=== PATIENT | female | born 1960 | race Two or more races ===

== ENCOUNTER 2018-11-11 16:28 | Emergency (ER) | payer OTHER, SELFPAY ==
[~2018-11-11] VITALS: Ht 157.5 cm; Wt 50.0 kg
[2018-11-11 16:38] VITALS: BP 144/79
--- NOTE | 2018-11-11 16:45 | NUR ---
PATIENT MICHAEL ROSSI FROM [facility] AT PATIENT'S WORK, PATIENT FOUND BY CO-WORKERS CRYING ON FLOOR. HX OF ANXIETY PER CO-WORKERS. HX OF METH USE. [id number]. PATIENT REFUSING TO SPEAK TO EMS, MD, SUPERVISOR IN CIRCUIT TESTING. UNABLE TO OBTAIN INFORMATION REGARDING PATIENT. PATIENT TEARFUL IN GURNEY, AWAKE/ALERT, ANXIOUS/UNCOOPERATIVE. AWAITING FURTHER ORDERS, CALL LIGHT WITHIN REACH. WARM BLANKET PROVIDED, NADN.
--- NOTE | 2018-11-11 17:02 | NUR ---
PATIENT AMBULATING WITH STEADY GAIT AROUND ER AND HEADING OUT DOOR TOWARDS RADIOLOGY, NOTIFIED STAFF TO CALL SECURITY, ATTEMPTED TO REDIRECT PATIENT BACK TO ROOM WITH NO SUCCESS. ATTEMPTED TO EDUCATE PATIENT REGARDING NEED FOR TREATMENT/OBSERVATION AFTER METH USE TODAY. PATIENT VOMITING IN BATHROOM IN HALLWAY NEAR RADIOLOGY. PATIENT UNABLE TO BE REDIRECTED BACK TO ROOM IN ED.
--- NOTE | 2018-11-11 17:16 | NUR ---
PATIENT ELOPED OUT [address] ENTRANCE WITH STEADY GAIT, SECURITY NOTIFIED. PATIENT NOT SPEAKING TO STAFF. UNABLE TO OBTAIN DC VS.
== END 2018-11-11 17:18 | disposition left against medical advice (07) ==
LOC: ED 17:12
DX: F41.9 Anxiety disorder, unspecified (principal); R45.83 Excessive crying of child, adolescent or adult
CPT/HCPCS: 99283

== ENCOUNTER 2020-03-05 20:10 | Emergency (ER) | payer OTHER ==
[~2020-03-05] VITALS: Ht 149.9 cm; Wt 52.0 kg
[2020-03-05] MEDS ORDERED: CITA10TA4 PO (20:28)
[2020-03-05] MEDS ORDERED: RISP1DIS PO (20:30)
[2020-03-05] MEDS ORDERED: CITA20SO2 PO (20:31)
--- NOTE | 2020-03-05 20:43 | NUR ---
pt states she took pills, was trying to kill herself so that's why she took her pills, she was hearing voices. To room 4, belongings placed in bags and in locked box, pt to restroom and back in bed, siderails up.
[2020-03-05 21:17] LABS: BASOPHILS % (AUTO) 0 % (0-1); EOSINOPHILS % (AUTO) 0 % (1-7); LYMPHOCYTES % (AUTO) 14 % (22-44); MEAN CORPUSCULAR HGB CONC 34.3 g/dL (32.4-35.8); MEAN PLATELET VOLUME 7.5 fL (7.4-10.4); MONOCYTES % (AUTO) 6 % (2-9); NEUTROPHILS % (AUTO) 79 % (42-75); PLATELET COUNT 250 x10^3/uL (130-400); RED BLOOD COUNT 3.61 x10^6/uL (3.82-5.3); RED CELL DISTRIBUTION WIDTH 12.5 % (9.6-15.2)
[2020-03-05 21:21] LABS: MD NO
[2020-03-05 21:28] LABS: ALANINE AMINOTRANSFERASE 19 U/L (12-78); ALBUMIN 3.6 g/dL (3.4-5.0); ANION GAP 7 mmol/L (5-15); CHLORIDE 111 mmol/L (98-107); CREATININE 0.64 mg/dL (0.55-1.02)
[2020-03-05 21:31] LABS: ALKALINE PHOSPHATASE 81 U/L (45-117); BILIRUBIN,TOTAL 0.6 mg/dL (0.2-1.0); TOTAL PROTEIN 6.6 g/dL (6.4-8.2)
--- NOTE | 2020-03-05 21:38 | NUR ---
Patient is resting comfortably in bed. Vital Signs within normal limits.
[2020-03-05 21:43] LABS: SALICYLATE LEVEL < 1.7 mg/dL (2.8-20.0)
--- NOTE | 2020-03-05 22:55 | NUR ---
PT CAOX3, HAD BOWEL MOVEMENT IN BED, CLEANED AND LINEN CHANGED. STATES SHE WANTS TO LEAVE, AND REMINDED SHE IS ON [employer] HOLD.
--- NOTE | 2020-03-06 00:39 | NUR ---
Pt resting comfortably, no distress.
--- NOTE | 2020-03-06 03:57 | NUR ---
Pt resting comfortably. medically cleared at 0300, packages faxed to outside facilities. no further changes.
--- NOTE | 2020-03-06 04:02 | NUR ---
MT: PSYCH PACKET SENT TO [facility]
--- NOTE | 2020-03-06 06:57 | NUR ---
Report and care given to dayshift RN
--- NOTE | 2020-03-06 07:02 | NUR ---
PT SUPINE ON GURNEY WITH EYES CLOSED. NAD, VSS. PT DENIES ANY NEEDS AT THIS TIME. SITTER WITHIN VIEW AND SAFETY PRECAUTIONS IN PLACE. WILL CONTINUE TO MONITOR.
--- NOTE | 2020-03-06 07:11 | NUR ---
HOSPITAL BED REQUESTED.
--- NOTE | 2020-03-06 07:55 | NUR ---
PT UP TO RESTROOM WITH THIS RN. RETURNED TO ROOM AND PUT ON HOSPITAL BED. NAD, VSS. PT DENIES ANY NEEDS AT THIS TIME. SITTER IN VIEW AND SAFETY PRECAUTIONS IN PLACE. WILL CONTINUE TO MONITOR.
--- NOTE | 2020-03-06 08:01 | NUR ---
UDS COLLECTED, LABELED, AND WALKED TO LAB.
[2020-03-06 08:17] LABS: MICROSCOPIC INDICATED
--- NOTE | 2020-03-06 08:21 | NUR ---
PT RESTING IN BED. JTN. VSS. PT CONTINUES TO STATE THOUGHTS OF SI W/ NO PLAN TO HURT HERSELF. PT STATES SHE HAS ATTEMPTED CHOKING HERSELF TO IN THE PAST. SITTER REMAINS AT BEDSIDE.
[2020-03-06 08:27] LABS: AMPHETAMINE SCREEN, URINE Negative (Negative); BARBITURATE SCREEN, URINE Negative (Negative); BENZODIAZEPINE SCREEN, URINE Negative (Negative); CANNABINOID SCREEN, URINE Negative (Negative); COCAINE SCREEN, URINE Negative (Negative); METHADONE SCREEN, URINE Negative (Negative); OPIATE SCREEN, URINE Negative (Negative)
--- NOTE | 2020-03-06 09:07 | NUR ---
PT SITTING UPRIGHT ON HOSPITAL BED WITH EYES CLOSED, RESTING COMFORTABLY. NAD, VSS. PT DENIES ANY ADDITIONAL NEEDS AT THIS TIME. SAFETY PRECAUTIONS IN PLACE AND SITTER WITHIN VIEW.
--- NOTE | 2020-03-06 12:04 | NUR ---
PSYCH VINNY BOB AT BEDSIDE. NAD, VSS. PT DENIES ANY NEEDS AT THIS TIME. SAFETY PRECAUTIONS IN PLACE AND SITTER WITHIN VIEW.
--- NOTE | 2020-03-06 12:24 | NUR ---
PT RESTING ON HOSPITAL BED. JTN. PROVIDED W/ SI LUNCH TRAY, SITTER REMAINS AT BEDSIDE. ROOM REMAINS SECURE.
--- NOTE | 2020-03-06 13:56 | NUR ---
PT SITTING UPRIGHT ON HOSPITAL BED WATCHING TV, RESTING COMFORTABLY. NAD, VSS. PT DENIES ANY ADDITIONAL NEEDS AT THIS TIME. SAFETY PRECAUTIONS IN PLACE AND SITTER WITHIN VIEW.
--- NOTE | 2020-03-06 14:48 | NUR ---
PACKET FAXED TO [facility]
--- NOTE | 2020-03-06 17:03 | NUR ---
PT SUPINE ON HOSPITAL BED WITH EYES CLOSED WITH TV ON, NAD. PT DENIES ANY NEEDS AT THIS TIME. SAFETY DON DOWN AND SITTER IN VIEW. WILL CONTINUE TO MONITOR.
--- NOTE | 2020-03-06 17:44 | NUR ---
PT PROVIDED W/ SI DINNER TRAY. PT RESTING IN BED. NADN. SITTER REMAINS AT BEDSIDE. ROOM REMAINS SECURE.
--- NOTE | 2020-03-06 18:02 | NUR ---
PT UPRIGHT ON HOSPITAL BED WATCHING TV, NAD. PT DENIES ANY NEEDS AT THIS TIME. SAFETY DON DOWN AND SITTER IN VIEW. WILL CONTINUE TO MONITOR.
--- NOTE | 2020-03-06 19:02 | NUR ---
BEDSIDE REPORT RECEIVED FROM NADIYA PEREZ. ASSUMED CARE OF PT. PT SLEEPING ON HOSPITAL BED. NO DISTRESS NOTED. SITTER OUTSIDE DOOR MONITORING PT. WILL CONTINUE TO MONITOR.
--- NOTE | 2020-03-06 19:17 | NUR ---
BEDSIDE REPORT TO MARY HEARN
--- NOTE | 2020-03-06 20:21 | NUR ---
PT SLEEPING. RESPIRATIONS EVEN AND UNLABORED. OCCASIONAL MOVEMENT NOTED. SITTER REMAINS OUTSIDE DOOR. ROOM SECURE.
--- NOTE | 2020-03-06 21:42 | NUR ---
PT CONTINUES TO SLEEP. RESPIRATIONS EVEN AND UNLABORED. SITTER OUTSIDE DOOR MONITORING PT
--- NOTE | 2020-03-06 23:02 | NUR ---
REPORT RECEIVED FROM MARY. PT IS CALM/SLEEPING. EQUAL RISE AND FALL OF CHEST. ROOM SECURE. GARAGE DOORS DOWN. SITTER AT BEDSIDE.
--- NOTE | 2020-03-07 00:38 | NUR ---
TASK RN: PT RESTING IN [facility] EYES CLOSED. EVEN/REGULAR RESPIRATIONS NOTED. PT IN HOSPITAL BED. ROOM SECURE. SITTER PRESENT.
--- NOTE | 2020-03-07 06:40 | NUR ---
PT SLEEPING. EQUAL RISE OF CHEST WALL. SITTER AT BEDSIDE. ROOM SECURE.
--- NOTE | 2020-03-07 07:04 | NUR ---
REPORT RECEIVED FROM NADIYA LOCKWOOD
--- NOTE | 2020-03-07 07:33 | NUR ---
PT RESTING IN ED BED ON HER SIDE WITH EYES CLOSED. EVEN RISE AND FALL OF CHEST NOTED. PT IN FULL VIEW OF THE SITTER. ROOM SECURED.
--- NOTE | 2020-03-07 10:02 | NUR ---
PT SITTING UP IN BED EATING BREAKFAST IN FULL VIEW OF SITTER. VS OBTAINED.
--- NOTE | 2020-03-07 11:24 | NUR ---
PT LAYING ON RIGHT SIDE WITH EYES CLOSED. EVEN RISE AND FALL OF LUIS MANUEL NOTED. ALL NEEDS MET AT THIS TIME.
--- NOTE | 2020-03-07 15:28 | NUR ---
PT BROUGHT SOME DECAF COFFEE. ALL PTS NEEDS MET AT THIS TIME.
--- NOTE | 2020-03-07 16:30 | NUR ---
PT SHOWERED HERSELF. CLEAN GOWN, SOCKS AND BED LINENS PROVIDED.
--- NOTE | 2020-03-07 18:03 | NUR ---
PT DINNER TRAY DELIVERED. PT RESTING COMFORTABLY IN BED WATCHING TV. ALL NEEDS MET AT THIS TIME.
--- NOTE | 2020-03-07 19:12 | NUR ---
REPORT FROM PAOLO HEARN. PT SLEEPING. EVEN RISE AND FALL OF CHEST OBSERVED. SITTER IN VIEW OF PT.
[2020-03-07] MEDS: RISPERIDONE 0.5 MG TABLET PO SCH (21:00)
--- NOTE | 2020-03-07 21:00 | NUR ---
PT SLEEPING. EVEN RISE AND FALL OF CHEST OBSERVED. PT HAS NO NEEDS AT THIS TIME. SITTER IN VIEW OF PT.
--- NOTE | 2020-03-07 22:30 | NUR ---
PT SLEEPING. EVEN RISE AND FALL OF CHEST OBSERVED. PT HAS NO NEEDS AT THIS TIME. SITTER IN VIEW OF PT.
--- NOTE | 2020-03-08 00:09 | NUR ---
PT RESTING AND HAS NO NEEDS AT THIS TIME. EVEN RESP OBSERVED. SITTER IN VIEW OF PT.
--- NOTE | 2020-03-08 01:25 | NUR ---
PT SLEEPING ON GURNEY AT THIS TIME. ROOM SECURED AND SITTER AT DOORWAY. WILL CONT TO MONITOR.
--- NOTE | 2020-03-08 01:59 | NUR ---
PT SLEEPING. EVEN RISE AND FALL OF CHEST OBSERVED. PT HAS NO NEEDS AT THIS TIME. SITTER IN VIEW OF PT.
--- NOTE | 2020-03-08 04:50 | NUR ---
PT SLEEPING ON GURNEY AT THIS TIME. ROOM SECURED AND SITTER AT DOORWAY. WILL CONT TO MONITOR.
--- NOTE | 2020-03-08 05:56 | NUR ---
PT RESTING IN NAD. SITTER IN VIEW OF PT.
--- NOTE | 2020-03-08 06:53 | NUR ---
REPORT TO SOLA HEARN.
--- NOTE | 2020-03-08 06:59 | NUR ---
REPORT RECEIVED FROM NADIYA ZEE AT BEDSIDE, PT SLEEPING, RESPS EVEN AND UNLABORED. ROOM SECURE. SITTER MONITORING FROM [facility].
[2020-03-08] MEDS: RISPERIDONE 0.5 MG TABLET PO SCH ×2 (09:00→12:00)
--- NOTE | 2020-03-08 09:25 | NUR ---
PT REASSESSED, DENTAL LAB TECHNICIAN UTILIZED FOR AM ASSESSMENT AND MED EDUCATION. PT IS A&O, RESPS EVEN AND UNLABORED. NEURO INTACT. PT DENIES BOWEL/BLADDER DYSFUNCTION. PT DENIES PAIN. PT DENIES SI, HOWEVER SHE STATES THAT SHE DOES FEEL ANXIOUS/DEPRESSED. BREAKFAST TRAY GIVEN TO PT, PT CONSUMED 75%. PT RESTING ON HOSPITAL BED. SITTER MONITORING FROM [facility]AF[facility], ROOM SECURE.
[2020-03-08] MEDS ORDERED: CITALOPRAM 20 MG TABLET ONE (09:40)
[2020-03-08] MEDS: CITALOPRAM 10 MG TABLET PO SCH (09:48)
--- NOTE | 2020-03-08 11:30 | NUR ---
pt sleeping on hospital bed, resps even and unlabored. room secure. sitter monitoring from hallway for safety.
--- NOTE | 2020-03-08 12:23 | NUR ---
VINNY Matthew notified pt had refused risperidal this am, VINNY spoke with pt, pt now agreeable to take resperidal. this RN confirmed this is pt's usual dose. medical screener per emar, pt tolerated well. report given to break NADIYA Armendariz.
--- NOTE | 2020-03-08 12:31 | NUR ---
BREAK RN: PT SLEEPING. MEAL TRAY WITH SITTER FOR PT, WHEN SHE AWAKENS. CONT IN SECURE ROOM. WAITING FOR FURTHER DISPOSITION.
--- NOTE | 2020-03-08 13:00 | NUR ---
PT SLEEPING ON HOSPITAL BED , RESPS EVEN AND UNLABORED. SI LUNCH MEAL TRAY AT BEDSIDE. SITTER MONITORING FROM [facility], ROOM SECURE.
--- NOTE | 2020-03-08 13:04 | NUR ---
REPORT TO SOLA HEARN.
--- NOTE | 2020-03-08 13:30 | NUR ---
PT SLEEPING ON HOSPITAL BED, RESPS EVEN AND UNLABORED. SITTER MONITORING FROM HALLWAY FOR SAFETY. ROOM SECURE. SI MEAL TRAY AT BEDSIDE.
--- NOTE | 2020-03-08 16:08 | NUR ---
PT SLEEPING, RESPS EVEN AND UNLABORED. ROOM REMAINS SECURE. SITTER MONITORING FROM H[facility]WAY FOR SAFETY.
--- NOTE | 2020-03-08 17:20 | NUR ---
pt awake, eating meal tray. pt alert, oriented, resps even and unlabored. pt calm and cooperative. sitter monitoring from hallway for safety. room secure.
--- NOTE | 2020-03-08 18:00 | NUR ---
pt showered with sitter assist. new gown provided. pt back to bed, room secure. sitter monitoring from [facility] for safety. room secure.
--- NOTE | 2020-03-08 18:50 | NUR ---
report given to NADIYA Aguilar who is assuming care. pt resting on hospital bed, resps evea and unlabored. sitter monitoring from [facility] for safety. room secure.
--- NOTE | 2020-03-08 19:13 | NUR ---
REPORT FROM NADIYA SELBY. PT AWAKE, RESTING, RR EQUAL AND UNLABORED. SECURITY CHECKS UPDATED; GARAGE DOORS DOWN. SITTER IN LINE OF SITE. PT ATE DINNER. WILL CONTINUE TO MONITOR.
--- NOTE | 2020-03-08 20:48 | NUR ---
Requested risperadol from pharmacy.
--- NOTE | 2020-03-08 20:52 | NUR ---
pt sister in law called wanting information and if she can visit her. Unable to verify consent from pt herself so no info was provided by this securities underwriter.
--- NOTE | 2020-03-08 23:11 | NUR ---
Pt requested snacks, given. Sitter remains in line of site. Will continue to monitor.
[2020-03-09] MEDS: RISPERIDONE 0.5 MG TABLET PO SCH ×3 (00:34→21:00)
--- NOTE | 2020-03-09 00:34 | NUR ---
RCD RISPIRADAL MEDICATED, PT WENT BACK TO SLEEP. CALM, COOPERATIVE. SITTER IN LINE OF SITE.
--- NOTE | 2020-03-09 01:18 | NUR ---
SLEEPING, RR EQUAL AND UNLABORED. SITTER IN LINE OF SITE. WILL CONTINUE TO MONITOR.
--- NOTE | 2020-03-09 02:11 | NUR ---
SLEEPING, RR EQUAL AND UNLABORED. SITTER IN LINE OF SITE. SAFETY UPDATED. WILL CONTINUE TO MONITOR.
--- NOTE | 2020-03-09 03:31 | NUR ---
PT SLEEPING, RR EQUAL AND UNLABORED. SITTER IN LINE OF SITE.
--- NOTE | 2020-03-09 05:26 | NUR ---
REMAINS SLEEPING, RR EQUAL AND UNLABORED. SITTER OUTSIDE ROOM IN LINE OF SITE. NO INCIDENTS THROUGHOUT THE NIGHT..
--- NOTE | 2020-03-09 06:10 | NUR ---
TASK RN: PT RESTING COMFORTABLY ON HOSPITAL BED, EYES CLOSED, EVEN AND UNLABORED RESPIRATIONS NOTED, SITTER IN LINE OF SIGHT, NAD, BED IN LOWEST. WCTM. L2K
--- NOTE | 2020-03-09 07:00 | NUR ---
pt resting in hospital bed, resp even and unlabored. [facility]
[2020-03-09] MEDS ORDERED: FOSFOMYCIN 3 GM PACKET PO ONE (07:30)
[2020-03-09] MEDS ORDERED: RISPERIDONE 2 MG TABLET ONE ×2 (08:30→21:07)
[2020-03-09] MEDS ORDERED: CITALOPRAM 20 MG TABLET ONE (08:30)
[2020-03-09] MEDS ORDERED: FOSFOMYCIN 3 GM PACKET ONE (08:30)
[2020-03-09] MEDS: CITALOPRAM 10 MG TABLET PO SCH (08:38)
--- NOTE | 2020-03-09 08:51 | NUR ---
assessment, discussion of poc, and medical asst done with clicking machine operator via [facility] [id number]
--- NOTE | 2020-03-09 08:59 | NUR ---
suicide risk assessment completed with reconciler via [facility] [id number]
[2020-03-09] MEDS ORDERED: IBUPROFEN 600 MG TABLET ONE (09:18)
[2020-03-09] MEDS ORDERED: IBUPROFEN 200 MG TABLET PO ONE (09:30)
--- NOTE | 2020-03-09 10:08 | NUR ---
pt resting in hospital bed, resp even and unlabored. sitter monitoring from [facility] for safety
--- NOTE | 2020-03-09 10:48 | NUR ---
pt resting in hospital bed, nad observed, resp equal and unlabored. sitter monitoring
--- NOTE | 2020-03-09 12:51 | NUR ---
FAMILY PHONE [phone]
--- NOTE | 2020-03-09 13:02 | NUR ---
PT PROVIDED WITH MEAL TRAY. AND ASSIST TO CALL FAMILY USING PHONE IN HALLWAY. NAD. PT AMBULATES WELL. WILL CONT TO MONITOR
--- NOTE | 2020-03-09 14:26 | NUR ---
pt escorted to shower with sandy sesay. per request.
--- NOTE | 2020-03-09 15:20 | NUR ---
PT PROVIDED WITH COFFEE PER REQUEST. DENIES FURTHER NEEDS AT THIS TIME
--- NOTE | 2020-03-09 16:48 | NUR ---
PT PROVIDED WITH MEAL TRAY. DENIES FURTHER NEEDS AT THIS TIME
--- NOTE | 2020-03-09 17:36 | NUR ---
PT RESTING IN BED, NAD, RESP EVEN AND UNLABORED
--- NOTE | 2020-03-09 18:49 | NUR ---
BEDSIDE REPORT FROM INDRA HEARN, PT CARE TRANSFERRED AT THIS TIME.
--- NOTE | 2020-03-09 19:07 | NUR ---
PT AMBULATED TO AND FROM RESTROOM WITH A SMOOTH AND STEADY GAIT, THEN BACK TO RESTING ON HOSPITAL BED, SITTER IN LINE OF SIGHT, SI PRECAUTIONS IN PLACE, APPEARS COMFORTABLE, PROVIDED WATER FOR COMFORT, WCTM. L2K
--- NOTE | 2020-03-09 20:10 | NUR ---
PT PROVIDED DECAF COFFEE PER REQUEST, NAD, RESTING ON HOSPITAL BED, DENIES ADDITIONAL NEEDS AT THIS TIME, SI PRECAUTIONS IN PLACE, SITTER IN LINE OF SIGHT, WCTM. L2K
--- NOTE | 2020-03-09 22:07 | NUR ---
PT USED PHONE TO CALL FAMILY THEN BACK TO RESTING ON HOSPITAL BED, NAD, APPEARS COMFORTABLE, EVEN AND UNLABORED RESPIRATIONS, SI PRECAUTIONS IN PLACE, SITTER IN LINE OF SIGHT. WCTM. L2K
--- NOTE | 2020-03-09 23:54 | NUR ---
PT RESTING ON GURNEY, NAD, APPEARS COMFORTABLE, SITTER IN LINE OF SIGHT, SI PRECAUTIONS IN PLACE, WCTM. L2K
--- NOTE | 2020-03-10 00:10 | NUR ---
PT C/O NEW ONSET ABDOMINAL PAIN, STATES SHE HAD A BOWEL MOVEMENT EARLIER TODAY, DENIES BURNING WITH URINATION, PT REPORTS RIGHT AND LEFT LOWER ABDOMINAL PAIN AND MID RIGHT ABDOMINAL PAIN. DENIES NAUSEA AT THIS TIME. PT APPEARS UNCOMFORTABLE. ERP AWARE. SITTER IN LINE OF SIGHT, SI PRECAUTIONS IN PLACED, WCTM.
[2020-03-10 01:35] LABS: BASOPHILS % (AUTO) 1 % (0-1); EOSINOPHILS % (AUTO) 2 % (1-7); LYMPHOCYTES % (AUTO) 42 % (22-44); MEAN CORPUSCULAR HEMOGLOBIN 31.1 pg (27.0-34.8); MEAN CORPUSCULAR HGB CONC 33.4 g/dL (32.4-35.8); MEAN PLATELET VOLUME 7.8 fL (7.4-10.4); MONOCYTES % (AUTO) 8 % (2-9); NEUTROPHILS % (AUTO) 46 % (42-75); PLATELET COUNT 318 x10^3/uL (130-400); RED BLOOD COUNT 4.19 x10^6/uL (3.82-5.3); RED CELL DISTRIBUTION WIDTH 12.5 % (9.6-15.2)
[2020-03-10 01:38] LABS: MD NO
[2020-03-10] MEDS ORDERED: CEFDINIR 300 MG CAPSULE ONE ×2 (01:38→07:27)
[2020-03-10] MEDS: CEFDINIR 300 MG CAPSULE PO SCH ×2 (01:42→07:53)
[2020-03-10 01:47] LABS: ALANINE AMINOTRANSFERASE 15 U/L (12-78); ANION GAP 5 mmol/L (5-15); CALCIUM 9.1 mg/dL (8.5-10.1); CHLORIDE 107 mmol/L (98-107); CREATININE 0.81 mg/dL (0.55-1.02)
[2020-03-10 01:49] LABS: ALKALINE PHOSPHATASE 87 U/L (45-117); BILIRUBIN,TOTAL 0.3 mg/dL (0.2-1.0); TOTAL PROTEIN 7.3 g/dL (6.4-8.2)
--- NOTE | 2020-03-10 02:31 | NUR ---
PT TO CT AT THIS TIME. NAD, NO CHANGE IN CONDITION. WCTM.
--- NOTE | 2020-03-10 03:58 | NUR ---
PT RESTING ON HOSPITAL BED, NAD, EVEN AND UNLABORED RESPIRATIONS, APPEARS COMFORTABLE, LIGHTS OFF FOR COMFORT, SI PRECAUTIONS IN PLACE, SITTER IN LINE OF SIGHT, WCTM. L2K
--- NOTE | 2020-03-10 06:39 | NUR ---
PT RESTING ON GURNEY, NAD, EYES CLOSED, EVEN AND UNLABORED RESPIRATIONS, APPEARS COMFORTABLE, SI PRECAUTIONS IN PLACE, SITTER IN LINE OF SIGHT, WCTM. L2K
--- NOTE | 2020-03-10 06:59 | NUR ---
bedside report to Kimmie HEARN, pt care transferred at this time.
[2020-03-10] MEDS ORDERED: CITALOPRAM 20 MG TABLET ONE (07:27)
[2020-03-10] MEDS ORDERED: RISPERIDONE 2 MG TABLET ONE (07:28)
[2020-03-10] MEDS: RISPERIDONE 0.5 MG TABLET PO SCH (07:53)
[2020-03-10] MEDS: CITALOPRAM 10 MG TABLET PO SCH (07:53)
--- NOTE | 2020-03-10 07:58 | NUR ---
PT RESTING ON HOSPITAL BED AT THIS TIME, VSS, PT MEDICATED PER MAR. PT CALM/COOPERATIVE WITH CARE. DISCUSSED POC, MEAL TRAY ORDERED, SI PRECAUTIONS OBSERVED, NAD NOTED
[2020-03-10] MEDS ORDERED: ACETAMINOPHEN 325 MG TABLET ONE (11:06)
[2020-03-10] MEDS ORDERED: ACETAMINOPHEN 325 MG TABLET PO ONE (11:30)
--- NOTE | 2020-03-10 13:05 | NUR ---
DARNELL BOB IN TO EVAL PT, PT DENIES SI AT THIS TIME ALTHOUGH DOES NOT FEEL SAFE TO BE DISCHARGED AND CONTINUES TO HAVE AUD HALLUCINATIONS, PER DARNELL PT TO APPLY FOR EMERGENCY MEDICAID TO FACILITATE ADMIT TO FACILITY. NO NEEDS AT THIS TIME, MEAL TRAY ORDERED. REPORT TO INDRA HEARN
--- NOTE | 2020-03-10 13:52 | NUR ---
PT PROVIDED WITH MEAL TRAY AND COFFEE PER REQUEST. DENIES FURTHER NEEDS AT THIS TIME
--- NOTE | 2020-03-10 19:02 | NUR ---
Report from NADIYA Yarbrough. Pt care assumed. Sitter continues in direct line of sight.
[2020-03-11] MEDS ORDERED: RISPERIDONE 0.5 MG TABLET PO ONE (01:00)
[2020-03-11] MEDS ORDERED: CEPHALEXIN 500 MG CAPSULE PO ONE (01:00)
[2020-03-11] MEDS ORDERED: CEFDINIR 300 MG CAPSULE ONE ×3 (01:01→21:15)
[2020-03-11] MEDS ORDERED: RISPERIDONE 2 MG TABLET ONE ×2 (01:01→08:11)
--- NOTE | 2020-03-11 01:06 | NUR ---
PT PROVIDED WITH SANDWICH, CHIPS, AND MILK PER COFFEE CART. ALSO MEDICATED PER REGULAR [facility]. PROVIDED WITH WARM BLANKETS PER REQUEST. PT DENIES ANY FURTHER NEEDS OR CONCERNS, SITTER CONTINUES IN DIRECT LINE OF SIGHT.
[2020-03-11] MEDS ORDERED: CEFDINIR 300 MG CAPSULE PO ONE (01:30)
--- NOTE | 2020-03-11 04:14 | NUR ---
PT CONTINUES RESTING IN BED, EYES CLOSED, RESPIRATIONS EVEN AND UNLABORED. SITTER CONTINUES IN DIRECT LINE OF SIGHT.
--- NOTE | 2020-03-11 06:10 | NUR ---
PT CONTINUES RESTING, NAD NOTED, RESPIRATIONS EVEN AND UNLABORED. SITTER CONTINUES IN DIRECT LINE OF SIGHT.
--- NOTE | 2020-03-11 07:07 | NUR ---
pt sleeping in bed. resp alina and unlabored. sitter [facility]
[2020-03-11] MEDS ORDERED: CITALOPRAM 20 MG TABLET ONE (08:11)
[2020-03-11] MEDS: CEFDINIR 300 MG CAPSULE PO SCH ×2 (08:17→21:00)
[2020-03-11] MEDS: CITALOPRAM 10 MG TABLET PO SCH (08:17)
[2020-03-11] MEDS: RISPERIDONE 0.5 MG TABLET PO SCH ×2 (08:18→21:00)
--- NOTE | 2020-03-11 08:35 | NUR ---
pt received meal tray. denies further needs at this time
--- NOTE | 2020-03-11 08:40 | NUR ---
manpower development advisor [id number] for am assessment, medical diagnostic radiographer, discussion of poc. and to address pt questions/concerns.
--- NOTE | 2020-03-11 09:00 | NUR ---
pt to shower with sitter monitoring. supplies provided. complete linen change
--- NOTE | 2020-03-11 09:00 | NUR ---
pt provided with tooth past and tooth brush
[2020-03-11] MEDS ORDERED: ACETAMINOPHEN 500 MG TABLET ONE (09:14)
[2020-03-11] MEDS: ACETAMINOPHEN 500 MG TABLET PO PRN (09:19)
--- NOTE | 2020-03-11 10:00 | NUR ---
PT RESTING IN BED. NAD. RESP EVEN AND UNLABORED. SITTER MONITORING FROM HALLWAY
--- NOTE | 2020-03-11 11:43 | NUR ---
PT SLEEPING IN BED. RESP EQUAL AND UNLABORED. SITTER MONITORING FROM [facility] FOR SAFET[facility]. ROOM SECURE
--- NOTE | 2020-03-11 13:00 | NUR ---
PT AMBULATED TO THE RESTROOM WITH STEADY GAIT WITH A UA CUP. VT REPORTS THAT SHE FORGOT TO COLLECT A URINE
[2020-03-11 13:57] LABS: MICROSCOPIC INDICATED
--- NOTE | 2020-03-11 15:06 | NUR ---
PT RESTING IN BED. RESP EQUAL AND UNLABORED. SITTER MONITORING FROM [place]
--- NOTE | 2020-03-11 18:21 | NUR ---
pt provided with meal tray. denies further needs at this time
--- NOTE | 2020-03-12 00:35 | NUR ---
Patient resting comfortably at this time. VSS. Offers no complaints. Rec't HS medication per JUN. Sitter at room. Denies any SI at this time.
--- NOTE | 2020-03-12 06:50 | NUR ---
REPORT RECEIVED FROM NADIYA LI
--- NOTE | 2020-03-12 06:56 | NUR ---
PT RESTING WITH EYES CLOSED. EVEN RISE AND FALL OF CHEST NOTED. SITTER OUTISDE ROOM WITH PT IN FULL VIEW. ROOM SECURED.
--- NOTE | 2020-03-12 09:05 | NUR ---
PT BREAKFAST DELIVERED. PT DENIES ANY COMPLAINT AT THIS TIME.
[2020-03-12] MEDS ORDERED: CEFDINIR 300 MG CAPSULE ONE ×2 (09:59→23:53)
[2020-03-12] MEDS ORDERED: ACETAMINOPHEN 500 MG TABLET ONE (09:59)
[2020-03-12] MEDS ORDERED: CITALOPRAM 20 MG TABLET ONE (09:59)
[2020-03-12] MEDS: CEFDINIR 300 MG CAPSULE PO SCH ×2 (10:02→21:00)
[2020-03-12] MEDS: ACETAMINOPHEN 500 MG TABLET PO PRN (10:03)
[2020-03-12] MEDS: RISPERIDONE 0.5 MG TABLET PO SCH (10:03)
[2020-03-12] MEDS: CITALOPRAM 10 MG TABLET PO SCH (10:07)
--- NOTE | 2020-03-12 10:16 | NUR ---
PT PHYSICAL AND SUICIDE REASSESSMENT COMPLETE VIA JEEP DRIVER #[id number]. PT C/O RIGHT SHOULDER PAIN AND MID BACK PAIN. PT DENIES SUICIDAL THOUGHTS OR FEELINGS AT THIS TIME. VSS.
--- NOTE | 2020-03-12 12:08 | NUR ---
LUNCH DELIVERED TO PT. PT RESTING BED WITH TV ON. SITTER IN FULL VIEW OF PT. ROOM SECURED. ALL NEEDS MET AT THIS TIME.
--- NOTE | 2020-03-12 14:20 | NUR ---
PT RESTING IN BED WITH EYES CLOSED. EVEN RISE AND FALL OF CHEST NOTED. PT NEEDS MET AT THIS TIME.
--- NOTE | 2020-03-12 18:09 | NUR ---
PT RESTING IN BED WITH EYES CLOSED. EVEN RISE AND FALL OF CHEST NOTED. NO ACUTE DISTRESS.
--- NOTE | 2020-03-12 19:00 | NUR ---
BEDSIDE REPORT RECEIVED FROM NADIYA DEUTSCH. ASSUMED CARE OF PT. PT SLEEPING. RESPIRATIONS EVEN AND UNLABORED. ROOM SECURE. SITTER OUTSIDE DOOR. WILL CONTINUE TO MONITOR.
--- NOTE | 2020-03-12 20:02 | NUR ---
PT SLEEPING. RESPIRATIONS EVEN AND UNLABORED. NO DISTRESS NOTED. ROOM REMAINS SECURE. SITTER OUTSIDE DOOR.
[2020-03-12] MEDS: RISPERIDONE 1 MG TABLET PO SCH (21:00)
--- NOTE | 2020-03-12 22:07 | NUR ---
PT AMBULATORY TO RESTROOM WITH A STEADY GAIT. BACK TO BED WITHOUT DIFFICULTY
[2020-03-12] MEDS ORDERED: RISPERIDONE 2 MG TABLET ONE (23:53)
--- NOTE | 2020-03-13 01:04 | NUR ---
BEDSIDE REPORT RECEIVED FROM MARY.
--- NOTE | 2020-03-13 01:04 | NUR ---
REPORT TO NADIYA PEREZ
--- NOTE | 2020-03-13 04:06 | NUR ---
PT SLEEPING. RESPIRATIONS EVEN AND UNLABORED. NO DISTRESS NOTED. ROOM REMAINS SECURE, SAFETY DON DOWN. SITTER WITHIN VIEW.
--- NOTE | 2020-03-13 05:05 | NUR ---
PT SLEEPING. RESPIRATIONS EVEN AND UNLABORED. NO DISTRESS NOTED. ROOM REMAINS SECURE, SAFETY DON DOWN. SITTER WITHIN VIEW.
--- NOTE | 2020-03-13 06:56 | NUR ---
BEDSIDE REPORT GIVEN TO CHANCE HEARN
[2020-03-13] MEDS ORDERED: CEFDINIR 300 MG CAPSULE ONE ×2 (08:22→20:46)
[2020-03-13] MEDS ORDERED: CITALOPRAM 20 MG TABLET ONE (08:22)
[2020-03-13] MEDS: CEFDINIR 300 MG CAPSULE PO SCH ×2 (08:27→20:49)
[2020-03-13] MEDS: CITALOPRAM 10 MG TABLET PO SCH (08:27)
--- NOTE | 2020-03-13 08:28 | NUR ---
PT PROVIDED WITH MEAL TRAY, GIVEN COFFEE PER PT REQUEST. PT MEDICATED PER JUN. SI PRECAUTIONS OBSERVED, NAD NOTED
--- NOTE | 2020-03-13 10:47 | NUR ---
PSYCH PLANT CONTROL OPERATOR IN TO EVAL PT. PT REMAINS ON LH, PT REQUESTING A SHOWER. WILL PROVIDE WHEN ABLE TO OBTAIN STAFF TO MAINTAIN SI PRECAUTIONS
--- NOTE | 2020-03-13 12:27 | NUR ---
LINENS CHANGED ON HOSPITAL BED FOR PT PER REQUEST. MEAL TRAY ORDERED, NO OTHER NEEDS
--- NOTE | 2020-03-13 14:48 | NUR ---
VITALS TAKEN. PT GIVEN COFFEE PER REQUEST. NO OTHER NEEDS AT THIS TIME
--- NOTE | 2020-03-13 18:57 | NUR ---
BEDSIDE REPORT FROM CHANCE HEARN, PT CARE TRANSFERRED AT THIS TIME. NAD, RESTING ON GURNEY, APPEARS COMFORTABLE, EVEN AND UNLABORED RESPIRATIONS, SI PRECAUTIONS IN PLACE, SITTER IN LINE OF SIGHT. WCTM.
--- NOTE | 2020-03-13 18:58 | NUR ---
Clotilde doyle in [facility] - 03/13/20 at 1859 by MARY ANNE pt resting in bed pt placed on opti-flow, pt medicated per mar
[2020-03-13] MEDS ORDERED: RISPERIDONE 2 MG TABLET ONE (20:46)
[2020-03-13] MEDS: RISPERIDONE 1 MG TABLET PO SCH (20:49)
--- NOTE | 2020-03-13 21:18 | NUR ---
PT PROVIDED SANDWICH AND DECAF COFFEE PER REQUEST. PT NAD, SITTING ON HOSPITAL BED, DENIES ADDITIONAL QUESTIONS OR NEEDS. SI PRECUATIONS IN PLACE, SITTER IN LINE OF SIGHT. WCTM.
--- NOTE | 2020-03-13 21:47 | NUR ---
ABLE TO AMBULATE TO BATHROOM WITHOUT ASSIST. NO C/O DIZZINESS/LIGHTHEADEDNESS
--- NOTE | 2020-03-13 22:35 | NUR ---
pt provided shower materials, nad, denies additional questions or needs at this time. pt showered, changed into a clean gown, brushed teeth and hair and back to bed on gurney, rose precautions in place, sitter in line of sight, tm. L2K
--- NOTE | 2020-03-13 23:33 | NUR ---
PT RESTING ON GURNEY, UNDER BLANKETS, NAD, APPEARS COMFORTABLE, SITTER IN LINE OF SIGHT, SI PRECAUTIONS IN PLACE, WCTM.
--- NOTE | 2020-03-14 04:17 | NUR ---
PT RESTING ON HOSPITAL BED, NAD, EVEN AND UNLABORED RESPIRATIONS, NAD, APPEARS COMFORTABLE, BREAKFAST TRAY ORDERED, WCTM. SITTER IN LINE OF SIGHT, SI PRECAUTIONS IN PLACE.
--- NOTE | 2020-03-14 06:40 | NUR ---
pt resting on hospital bed, nad, even and unlabored respirations, appears comfortable, sitter in line of sight, si precautions in place. wctm.
--- NOTE | 2020-03-14 06:44 | NUR ---
report to gloria dunn, pt care transferred at this time.
--- NOTE | 2020-03-14 06:45 | NUR ---
REC'D REPORT FROM SLEEPING BAG FILLER RN. PT HAS BLANKET COVERING FACE AND IS SLEEPING. VISULIZED PT BREATHING. SITTER AT DOORWAY.
--- NOTE | 2020-03-14 08:06 | NUR ---
pt given breakfast tray. vss. pt is pleasent.
[2020-03-14] MEDS ORDERED: CEFDINIR 300 MG CAPSULE ONE ×2 (09:05→22:23)
--- NOTE | 2020-03-14 09:58 | NUR ---
PT SLEEPING IN BED. SITTER AT DOOR.
[2020-03-14] MEDS: CEFDINIR 300 MG CAPSULE PO SCH ×2 (10:08→21:00)
[2020-03-14] MEDS: CITALOPRAM 10 MG TABLET PO SCH (11:03)
--- NOTE | 2020-03-14 11:04 | NUR ---
pt resting comfortably in bed. very pleasant when taking medications.
--- NOTE | 2020-03-14 14:04 | NUR ---
pt sitting in bed watching tv
--- NOTE | 2020-03-14 14:07 | NUR ---
SEEN BY PSYCH VINNY PRADO: PT HOLD EXTENDED X1 WK PER REFUGIO SIMMONS NOTE 03/13/20, EMERGENCY MEDICAID APPLICATION PENDING, [facility] ADMISSION RN UNAVAILABLE AT THIS TIME FOR PLACEMENT FOLLOW-UP, [facility] SUP ADVISED TO CALL BACK TONIGHT ~[phone]. PRIMARY RN AWARE.
--- NOTE | 2020-03-14 15:52 | NUR ---
VSS. PT RESTING IN BED.
--- NOTE | 2020-03-14 16:55 | NUR ---
REPORT GIVEN TO NADIYA HUGO
--- NOTE | 2020-03-14 17:00 | NUR ---
PT RESTING ON NAD. OJ SITTER OUTSIDE OF ROOM FOR SAFETY.
--- NOTE | 2020-03-14 18:50 | NUR ---
REPORT GIVEN TO ROSY HEARN.
--- NOTE | 2020-03-14 18:50 | NUR ---
LATE ENTRY D/T PT CARE: BEDSIDE REPORT FROM BETHEL RN, PT CARE TRANSFERRED AT THIS TIME. PT RESTING ON HOSPITAL BED, NAD, DENIES ADDITIONAL QUESTIONS OR NEEDS AT THIS TIME. SI PRECAUTION IN PLACE, SITTER IN LINE OF SIGHT, CORDELIA.
--- NOTE | 2020-03-14 19:59 | NUR ---
PT RESTING ON HOSPITAL BED, NAD, NO CHANGE IN CONDITION. SI PRECAUTION IN PLACE, SITTER IN LINE OF SIGHT, WCTM.
--- NOTE | 2020-03-14 20:29 | NUR ---
PT PROVIDED MEAL FOR COMFORT, NAD, NO CHANGE IN CONDITION, ROOM PRECAUTIONS IN PLACE, SITTER IN LINE OF SIGHT, CORDELIA.
[2020-03-14] MEDS: RISPERIDONE 1 MG TABLET PO SCH (21:00)
--- NOTE | 2020-03-14 21:34 | NUR ---
MT: ATTEMPTED TO CALL [facility] TO FIND OUT WHERE PT STANDS IN LINE TO BE ADMITTED, BUT NO ONE ANSWERED.
[2020-03-14] MEDS ORDERED: RISPERIDONE 2 MG TABLET ONE (22:21)
--- NOTE | 2020-03-15 00:18 | NUR ---
pt nad, resting on hopsital bed, even and unlabored respirations, eyes closed, wctm. sitter in line of sight, si precautions in place.
--- NOTE | 2020-03-15 01:40 | NUR ---
pt nad, resting on gurney, even and unlabored respirations, wctm. si precautions in place, sitter in line of sight.
--- NOTE | 2020-03-15 06:48 | NUR ---
report to Parish RN, pt care transferred at this time. pt resting on hospital bed, nad, even and unlabored respirations, sitter in line of sight, si precautions in place, breakfast tray ordered.
--- NOTE | 2020-03-15 07:04 | NUR ---
RECEIVED REPORT FROM EMELYN HEARN, PLAN OF CARE DISCUSSED. PT SLEEPING RESP EVEN AND UNLABORED. ROOMS SECURED, SITTER AT DOOR
[2020-03-15] MEDS ORDERED: CEFDINIR 300 MG CAPSULE ONE ×2 (07:19→21:22)
[2020-03-15] MEDS ORDERED: CITALOPRAM 20 MG TABLET ONE (07:19)
--- NOTE | 2020-03-15 08:12 | NUR ---
MEAL AND MEDS PROVIDED, PT VERBALIZED APPRECIATION AND VERBALIZED NO ADDITIONAL NEEDS AT THIS TIME
[2020-03-15] MEDS: CEFDINIR 300 MG CAPSULE PO SCH ×2 (08:36→21:28)
[2020-03-15] MEDS: CITALOPRAM 10 MG TABLET PO SCH (08:36)
--- NOTE | 2020-03-15 09:32 | NUR ---
PT RESTING, ROOM REMAINS SECURED, ATE BREAKFAST, AM CARE COMPLETED BY PT. SITTER AT DOOR
--- NOTE | 2020-03-15 10:41 | NUR ---
LINEN CHANGED. PT UP TO SHOWER, HAIR WASHED AND TEETH BRUSHED WELL. PT VERBALIZE NO ADDITIONAL NEEDS AT THIS TIME
--- NOTE | 2020-03-15 11:43 | NUR ---
ORDERED MEAL, PT RESTING, SITTER AT DOOR, ROOM REMAINS SECURED.
--- NOTE | 2020-03-15 12:55 | NUR ---
MEAL AT BS, PT SLEEPING RESP EVEN AND UNLABORED. SITTER AT BS, ROOM REMAINS SECURED
--- NOTE | 2020-03-15 13:20 | NUR ---
PT EATING MEAL, VERBALIZED NO NEEDS AT THIS TIME
--- NOTE | 2020-03-15 13:46 | NUR ---
ASSUMED CARE OF PATIENT. NO ACUTE DISTRESS NOTED. SITTER AT DOOR. WILL CONTINUE TO MONITOR.
--- NOTE | 2020-03-15 15:03 | NUR ---
PT RESTING IN ROOM. REGULAR RESP. SITTER AT DOOR. WILL CONTINUE TO MONITOR.
--- NOTE | 2020-03-15 16:21 | NUR ---
PT RESTING IN ROOM. NO ACUTE DISTRESS NOTED. SITTER AT DOOR. WILL CONTINUE TO MONITOR.
--- NOTE | 2020-03-15 17:24 | NUR ---
PT RESTING IN ROOM. NO ACUTE DISTRESS NOTED. SITTER AT DOOR. WILL CONTINUE TO MONITOR.
--- NOTE | 2020-03-15 18:30 | NUR ---
PT HAS BEEN GIVEN DINNER. NO ACUTE DISTRESS NOTED. SITTER AT DOOR.
--- NOTE | 2020-03-15 19:30 | NUR ---
PT RESTING IN ROOM. REGULAR RESP. NO ACUTE DISTRESS NOTED. WILL CONTINUE TO MONITOR. SITTER AT DOOR.
--- NOTE | 2020-03-15 19:56 | NUR ---
pt reports some nausea. Dr Bui aware. Zofran ordered. Report given to NADIYA Nj for lunch
[2020-03-15] MEDS ORDERED: ONDANSETRON ODT 4 MG ONE (19:57)
[2020-03-15] MEDS ORDERED: ONDANSETRON ODT 4 MG PO ONE (20:00)
[2020-03-15] MEDS: RISPERIDONE 1 MG TABLET PO SCH (21:00)
--- NOTE | 2020-03-15 21:12 | NUR ---
patient resting in room. no acute distress noted. will continue to monitor.
--- NOTE | 2020-03-15 21:48 | NUR ---
TASK RN: PT MEDICATED PER MAR AT THIS TIME. PT RESTING IN [facility] WITH SITTER OUTSIDE OF ROOM AND NADN.
--- NOTE | 2020-03-15 22:30 | NUR ---
PT RESTING IN ROOM. SITTER AT DOOR. NO ACUTE DISTRESS NOTED. WILL CONTINUE TO MONITOR.
--- NOTE | 2020-03-16 00:13 | NUR ---
PATIENT RESTING IN ROOM. NO ACUTE DISTRESS NOTED. CALL LIGHT IN PLACE. WILL CONTINUE TO MONITOR.
--- NOTE | 2020-03-16 01:09 | NUR ---
PATIENT RESTING IN ROOM. NO ACUTE DISTRESS NOTED. SITTER AT DOOR. WILL CONTINUE TO MONITOR.
--- NOTE | 2020-03-16 02:07 | NUR ---
REPORT GIVEN TO NADIYA GALAVIZ
--- NOTE | 2020-03-16 05:16 | NUR ---
pt continues to sleep in bed, chest rise and fall observed, sitter at bedside, room secure
--- NOTE | 2020-03-16 06:16 | NUR ---
pt continues to sleep in bed, chest rise and fall observed, sitter at bedside, room secure
--- NOTE | 2020-03-16 06:57 | NUR ---
REPORT RECIVED, PT LAYING IN BED NO DISTRESS
--- NOTE | 2020-03-16 08:16 | NUR ---
PT IN BED NO CHANGE
[2020-03-16] MEDS: CITALOPRAM 10 MG TABLET PO SCH (09:00)
[2020-03-16] MEDS ORDERED: CEFDINIR 300 MG CAPSULE ONE ×2 (09:27→22:56)
[2020-03-16] MEDS ORDERED: CITALOPRAM 20 MG TABLET ONE (09:28)
[2020-03-16] MEDS: CEFDINIR 300 MG CAPSULE PO SCH ×2 (09:37→23:24)
--- NOTE | 2020-03-16 09:47 | NUR ---
pt in bed no change,
--- NOTE | 2020-03-16 10:30 | NUR ---
pt in bed no distress
--- NOTE | 2020-03-16 11:14 | NUR ---
pt in bed no change
--- NOTE | 2020-03-16 11:45 | NUR ---
PT IN BED NO CHANGE
--- NOTE | 2020-03-16 11:46 | NUR ---
PT IN BED NO CHANGE
--- NOTE | 2020-03-16 13:02 | NUR ---
BREAK RN: PT SLEEPING ON HOSPITAL BED W/ GARAGE DOORS DOWN AND SITTER OUTSIDE FOR SAFETY. RESP EVEN AND UNLABORED, EMMANUEL.
--- NOTE | 2020-03-16 13:50 | NUR ---
THROUGHPUT RN NOTE: AWAITING MEDICAID INSURANCE COVERAGE FOR PT, PER SUPERINTENDENT DIVISION JOHAN THIS IS STILL PENDING. PYSCH PACKET WILL BE RE-FAXED ONCE INSURANCE COVERAGE OBTAINED.
--- NOTE | 2020-03-16 15:30 | NUR ---
THIS RN SPOKE WITH REGISTRATION STAFF WHO CONFIRM PT DOES NOT HAVE MEDICAID INSURANCE YET, APPLICATION STILL PENDING. PER REGISTRATION STAFF, MEDICAID IS PENDING CONFIRMATION TO BE SENT FROM PT'S PLACE OF WORK, NO FURTHER ACTION REQUIRED FROM [facility] TO EXPEDITE PROCESS. PT HAS NOT BEEN ACCEPTED YET BY [facility].
--- NOTE | 2020-03-16 18:14 | NUR ---
PT IN BED NO CHANGE
--- NOTE | 2020-03-16 18:18 | NUR ---
TP RN NOTE: THIS RN SPOKE WITH [facility] MESS COOK, WHO STATES THEY CANNOT ACCEPT PT AT THIS TIME [facility] IS AT [place], SHE STATES "YOU SHOULD CALL BACK AT 11PM TONIGHT THOUGH WHEN OUR OTHER MESS COOK IS THERE."
--- NOTE | 2020-03-16 18:48 | NUR ---
REPORT FROM TAWANDA ASSUMING CARE OF PT AT THIS TIME
--- NOTE | 2020-03-16 19:28 | NUR ---
PT RESTING ON BED, SITTER REMAINS IN VIEW FOR SAFETY
--- NOTE | 2020-03-16 20:51 | NUR ---
PT RESTING ON HOSPITAL BED, SITTER IN VIEW NO NEEDS AT THIS TIME
--- NOTE | 2020-03-16 21:43 | NUR ---
PT RESTING ON HOSPITAL BED, SITTER IN VIEW NO NEEDS AT THIS TIME
--- NOTE | 2020-03-16 22:36 | NUR ---
PT RESTING ON HOSPITAL BED, SITTER IN VIEW NO NEEDS AT THIS TIME
--- NOTE | 2020-03-16 22:59 | NUR ---
MED REQUESTED FROM PHARMACY
--- NOTE | 2020-03-16 23:14 | NUR ---
PT MEDICATED PER MAR TOLERATED WELL NO NEEDS AT THIS TIME
[2020-03-16] MEDS: RISPERIDONE 1 MG TABLET PO SCH (23:25)
--- NOTE | 2020-03-17 00:51 | NUR ---
THROUGHPUT RN: [facility] CALLED PER THEIR REQUEST TO GET UPDATE ON PT ACCEPTANCE. PER TAYLER AT [facility] "WE CANNOT TAKE THIS PT AT THIS TIME, WE HAVE A SITUATION HERE, NO COMPUTER FORENSICS ANALYST IS CURRENTLY ON, WE NEED YOU TO CALL BACK IN THE MORNING." STATION SUPERINTENDENT/ED ADAM WILKINSON UPDATED, AWARE.
--- NOTE | 2020-03-17 01:22 | NUR ---
PT RESTING ON HOSPITAL BED SITTER IN VIEW NO NEEDS AT THIS TIME
--- NOTE | 2020-03-17 02:47 | NUR ---
PT RESTING ON HOSPITAL BED NO NEEDS AT THIS TIME SITTER IN VIEW FOR SAFETY
--- NOTE | 2020-03-17 03:45 | NUR ---
PT RESTING ON HOSPITAL BED NADN, SITTER IN SIGHT
--- NOTE | 2020-03-17 04:27 | NUR ---
PT CONTINUES TO REST ON HOSPITAL BED NADN, NO NEEDS AT THIS TIME
--- NOTE | 2020-03-17 04:27 | NUR ---
SITTER IN SIGHT
--- NOTE | 2020-03-17 05:30 | NUR ---
PT REMAINS ASLEEP AT THIS TIME NO NEEDS, SITTER IN SIGHT FOR SAFETY
--- NOTE | 2020-03-17 06:34 | NUR ---
PT RESTING ON HOSPITAL BED NO NEEDS AT THIS TIME, SITTER IN SIGHT.
--- NOTE | 2020-03-17 07:15 | NUR ---
REPORT RECIEVED FROM MARY HEARN. PT RESTING IN BED.
[2020-03-17] MEDS ORDERED: CITALOPRAM 20 MG TABLET ONE (07:32)
[2020-03-17] MEDS ORDERED: CEFDINIR 300 MG CAPSULE ONE (07:32)
[2020-03-17] MEDS: CEFDINIR 300 MG CAPSULE PO SCH (08:14)
[2020-03-17] MEDS: CITALOPRAM 10 MG TABLET PO SCH (08:14)
--- NOTE | 2020-03-17 10:00 | NUR ---
PT RESTING IN BED, NO SI/SA THOUGHTS. SAFETY PRECAUTIONS IN PLACE.
--- NOTE | 2020-03-17 11:48 | NUR ---
REPORT RECEIVED FROM NADIYA BARRAZA FOR TRANSFER OF PATIENT CARE.
--- NOTE | 2020-03-17 12:11 | NUR ---
PATIENT RESTING IN GURNEY, EYES CLOSED, RESPIRATIONS EVEN AND UNLABORED, SITTER AT DOORWAY, SUICIDE PRECAUTIONS IN PLACE.
--- NOTE | 2020-03-17 12:52 | NUR ---
LUNCH TRAY PROVIDED. SITTER AT DOORWAY, SUICIDE PRECAUTIONS IN PLACE, EMMANUEL.
--- NOTE | 2020-03-17 13:32 | NUR ---
PATIENT RESTING IN [facility] WITH EYES OPEN, NADN, SUICIDE PRECAUTIONS IN PLACE, SITTER AT DOORWAY.
--- NOTE | 2020-03-17 14:26 | NUR ---
PATIENT RESTING IN GURNEY WITH EYES CLOSED, RESPIRATIONS EVEN AND UNLABORED, SUICIDE PRECAUTIONS IN PLACE, SITTER AT BEDSIDE.
--- NOTE | 2020-03-17 15:56 | NUR ---
PATIENT RESTING IN RNEY WITH EYES CLOSED, RESPIRATIONS EVEN AND UNLABORED, NADN, SUICIDE PRECAUTIONS IN PLACE, SITTER AT DOORWAY.
--- NOTE | 2020-03-17 16:20 | NUR ---
PATIENT REQUESTING TO MAKE A PHONE CALL, ASSISTED PATIENT WITH TELEPHONE BY DISCHARGE DESK. PATIENT BACK IN ROOM, IN [facility], WATCHING TV, SUICIDE PRECAUTIONS IN PLACE, SITTER AT DOORWAY.
--- NOTE | 2020-03-17 17:19 | NUR ---
PATIENT RESTING IN GURNEY WITH EYES CLOSED, RESPIRATIONS EVEN AND UNLABORED, SUICIDE PRECAUTIONS IN PLACE, SITTER AT BEDSIDE.
--- NOTE | 2020-03-17 18:15 | NUR ---
DINNER TRAY ORDERED.
--- NOTE | 2020-03-17 19:18 | NUR ---
PATIENT STANDING IN ROOM STRETCHING, NO SIGNS OF ACUTE DISTRESS, SUICIDE PRECAUTIONS IN PLACE, SITTER AT DOORWAY.
--- NOTE | 2020-03-17 19:52 | NUR ---
THROUGHBOB RN: PER REGISTRATION MEDICARE APPLICATION STILL PENDING AT THIS TIME.
--- NOTE | 2020-03-17 20:29 | NUR ---
PATIENT RESTING IN GURNEY, WATCHING TV, NADN, SUICIDE PRECAUTIONS IN PLACE, SITTER AT DOORWAY.
[2020-03-17] MEDS: RISPERIDONE 1 MG TABLET PO SCH (21:00)
--- NOTE | 2020-03-17 21:46 | NUR ---
PATIENT RESTING IN GURNEY WITH EYES CLOSED, RESPIRATIONS EVEN AND UNLABORED, SUICIDE PRECAUTIONS IN PLACE, SITTER AT DOORWAY.
--- NOTE | 2020-03-17 22:46 | NUR ---
PATIENT RESTING IN GURNEY WITH EYES CLOSED, RESP EVEN AND UNLABORED, NADN, SUICIDE PRECAUTIONS IN PLACE, SITTER AT DOORWAY, WILL CONTINUE TO MONITOR.
--- NOTE | 2020-03-17 23:23 | NUR ---
PATIENT RESTING IN GURNEY WITH EYES CLOSED, RESP EVEN AND UNLABORED, SUICIDE PRECAUTIONS IN PLACE, SITTER IN LINE OF SIGHT, WILL CONTINUE TO MONITOR.
--- NOTE | 2020-03-18 00:14 | NUR ---
Report from shaun maloney. Pt sleeping, rr equal and unlabored. Sitter in line of site. Will continue to monitor
--- NOTE | 2020-03-18 02:26 | NUR ---
Pt sleeping, RR equal and unlabored. Sitter outside room.
[2020-03-18] MEDS: CEFDINIR 300 MG CAPSULE PO SCH ×3 (05:04→21:00)
--- NOTE | 2020-03-18 06:37 | NUR ---
Sleeping, RR equal and unlabored. Sitter in line of site.
--- NOTE | 2020-03-18 06:54 | NUR ---
REPORT FROM LORI, PT SLEEPING. BLANCO PRESENT
--- NOTE | 2020-03-18 08:28 | NUR ---
GIVEN MEAL TRAY
[2020-03-18] MEDS: CITALOPRAM 10 MG TABLET PO SCH (09:00)
--- NOTE | 2020-03-18 09:40 | NUR ---
PT RESTING, NO NEEDS A THIS TIME.
[2020-03-18] MEDS ORDERED: CEFDINIR 300 MG CAPSULE ONE ×2 (10:49→19:04)
[2020-03-18] MEDS ORDERED: CITALOPRAM 20 MG TABLET ONE (10:50)
--- NOTE | 2020-03-18 11:40 | NUR ---
PT AMBULATED TO BATHROOM
--- NOTE | 2020-03-18 12:46 | NUR ---
MEAL TRAY PROVIDED TO PATIENT
--- NOTE | 2020-03-18 13:04 | NUR ---
LISBETH CASILLAS AT BEDSIDE.
--- NOTE | 2020-03-18 13:15 | NUR ---
Break RN: assumed care of pt for primary RN lunch break only. psych FACTORY ASSEMBLER at bedside for eval room secure. sitter present for safety
--- NOTE | 2020-03-18 14:10 | NUR ---
pt using phone.
--- NOTE | 2020-03-18 14:52 | NUR ---
PT RESTING. AMBULATED TO BATHROOM
--- NOTE | 2020-03-18 15:30 | NUR ---
medicated per orders. sitter present
--- NOTE | 2020-03-18 16:35 | NUR ---
ASSISTED PT W SHOWER. CHANGED LINENS
--- NOTE | 2020-03-18 17:30 | NUR ---
PT WATCHING TV. NO NEEDS AT THIS TIME. SITTER PRESENT
--- NOTE | 2020-03-18 18:28 | NUR ---
given meal tray, sitter present
--- NOTE | 2020-03-18 18:54 | NUR ---
REPORT TO SERGIO
[2020-03-18] MEDS: PALIPERIDONE 3 MG TAB.ER.24 PO SCH (21:00)
[2020-03-18] MEDS: RISPERIDONE 0.5 MG TABLET PO SCH (21:00)
--- NOTE | 2020-03-18 21:40 | NUR ---
pt medicated per emar. pt was nto given invega earlier today at scheduled time. i passed it with her scheduled night meds.
--- NOTE | 2020-03-18 23:57 | NUR ---
PT RESTING ON HOSPITAL BED. RESPIRATIONS EVEN AND UNLABORED. SITTER AT DOORWAY FOR FREQUENT CHECKS.
--- NOTE | 2020-03-19 01:00 | NUR ---
PT RESTING ON HOSPITAL BED. RESPIRATIONS EVEN AND UNLABORED. SITTER AT DOORWAY FOR FREQUENT CHECKS.
--- NOTE | 2020-03-19 02:00 | NUR ---
PT RESTING ON HOSPITAL BED. RESPIRATIONS EVEN AND UNLABORED. SITTER AT DOORWAY FOR FREQUENT CHECKS.
--- NOTE | 2020-03-19 03:00 | NUR ---
PT RESTING ON HOSPITAL BED. RESPIRATIONS EVEN AND UNLABORED. SITTER AT DOORWAY FOR FREQUENT CHECKS.
--- NOTE | 2020-03-19 04:32 | NUR ---
PT RESTING ON HOSPITAL BED. RESPIRATIONS EVEN AND UNLABORED. SITTER AT DOORWAY FOR FREQUENT CHECKS.
--- NOTE | 2020-03-19 06:27 | NUR ---
PT RESTING ON HOSPITAL BED. RESPIRATIONS EVEN AND UNLABORED. SITTER AT DOORWAY FOR FREQUENT CHECKS.
[2020-03-19] MEDS ORDERED: CITALOPRAM 20 MG TABLET ONE (08:53)
[2020-03-19] MEDS ORDERED: CEFDINIR 300 MG CAPSULE ONE ×2 (08:53→20:54)
[2020-03-19] MEDS: PALIPERIDONE 3 MG TAB.ER.24 PO SCH (09:12)
[2020-03-19] MEDS: CEFDINIR 300 MG CAPSULE PO SCH (09:12)
[2020-03-19] MEDS: CITALOPRAM 10 MG TABLET PO SCH (09:13)
--- NOTE | 2020-03-19 11:34 | NUR ---
PT RESTING ON ED BED. EYES CLOSED. EVEN FALL AND RISE OF CHEST NOTED. ALL PT NEEDS MET AT THIS TIME. PT IN VIEW OF SITTER. ROOM SECURED.
--- NOTE | 2020-03-19 15:05 | NUR ---
PT PROVIDED LUNCH. AIR BRAKE RIGGER AT BEDSIDE USING CASEY SAW OPERATOR TO SPEAK WITH PT
--- NOTE | 2020-03-19 15:25 | NUR ---
Clotilde doyle in [facility] - 03/19/20 at 1848 by BLAIRE VISITOR AT [facility]
[2020-03-19] MEDS ORDERED: ORAJEL 7GM TUBE MM PRN (16:00)
[2020-03-19] MEDS ORDERED: ACETAMINOPHEN 500 MG TABLET ONE (16:11)
[2020-03-19] MEDS: ACETAMINOPHEN 500 MG TABLET PO PRN (16:13)
--- NOTE | 2020-03-19 16:28 | NUR ---
MEDICATED FOR DENTAL PAIN AND PROVIDED COFFEE
--- NOTE | 2020-03-19 18:45 | NUR ---
PT DINNER DELIVERED AND LEFT BEDSIDE. PT RESTING WITH EYES CLOSED. EVEN RISE AND FALL OF CHEST NOTED. IN FULL VIEW OF THE SITTER.
--- NOTE | 2020-03-19 19:08 | NUR ---
REPORT GIVEN TO NADIYA ZAVALA
--- NOTE | 2020-03-19 19:23 | NUR ---
REPORT FROM NADIYA BOONE. PT RESTING IN BED, IN VIEW OF SITTER. PROVIDED WITH JUICE AND WATER AT REQUEST. ALL NEEDS MET AT THIS TIME.
[2020-03-19] MEDS ORDERED: RISPERIDONE 2 MG TABLET ONE (20:54)
[2020-03-19] MEDS: RISPERIDONE 0.5 MG TABLET PO SCH (21:48)
--- NOTE | 2020-03-19 23:47 | NUR ---
PT AMBULATORY AROUND UNIT WITH THIS RN. STEADY GAIT. PT TALKATIVE WITH THIS RN APPROPRIATELY.
--- NOTE | 2020-03-20 06:57 | NUR ---
REPORT RECEIVED FROM NADIYA ZAVALA. ASSUMING PRIMARY CARE OF PT.
--- NOTE | 2020-03-20 07:07 | NUR ---
PT ASLEEP ON HOSPITAL BED. RR EVEN AND UNLABORED. SI PRECAUTIONS IMPLEMENTED. SITTER AT BEDSIDE.
--- NOTE | 2020-03-20 07:24 | NUR ---
AM MEDICATED REQUESTED WITH PHARMACY.
[2020-03-20] MEDS ORDERED: CEFDINIR 300 MG CAPSULE ONE ×2 (08:46→20:37)
[2020-03-20] MEDS ORDERED: CITALOPRAM 20 MG TABLET ONE (08:46)
--- NOTE | 2020-03-20 08:49 | NUR ---
BREAKFAST DELIVERED TO PT. PT STILL ASLEEP. RN TO LET PT SLEEP AND ADMINISTER MORNING MEDICATION PER EMAR.
[2020-03-20] MEDS: PALIPERIDONE 3 MG TAB.ER.24 PO SCH (09:01)
[2020-03-20] MEDS: CITALOPRAM 10 MG TABLET PO SCH (09:01)
[2020-03-20] MEDS: CEFDINIR 300 MG CAPSULE PO SCH ×2 (09:01→20:39)
--- NOTE | 2020-03-20 09:02 | NUR ---
MEDICATION ADMINISTERED PER EMAR.
--- NOTE | 2020-03-20 11:50 | NUR ---
LUNCH DELIVERED TO PT. PT REQUESTING APPLE JUICE. RN PROVIDED PT WITH APPLE JUICE AND ADDITIONAL WATER. PT SITTING UP IN BED WATCHING TV. NO OTHER NEEDS AT THIS TIME. SITTER OUTSIDE OF ROOM MONITORING PT. THIS RN TO CONTINUE TO MONITOR.
--- NOTE | 2020-03-20 16:09 | NUR ---
BACK TO ASSUMING PRIMARY CARE OF PT.
--- NOTE | 2020-03-20 16:51 | NUR ---
PT LYING ON HOSPITAL BED WATCHING TV.
--- NOTE | 2020-03-20 17:37 | NUR ---
DINNER DELIVERED TO PT. PT REQUESTING COFFEE. RN PROVIDED PT WITH COFFEE PER REQUEST.
--- NOTE | 2020-03-20 18:51 | NUR ---
REPORT TO NADIYA SANDOVAL.
--- NOTE | 2020-03-20 19:26 | NUR ---
Report from NADIYA garcia. Pt sleeping RR equal and unlabored. Sitter in line of site. Will continue to [facility].
--- NOTE | 2020-03-20 20:52 | NUR ---
requested rika from pharmacy, as dose here is 2mg small tablet.
[2020-03-20] MEDS: RISPERIDONE 0.5 MG TABLET PO SCH (21:00)
--- NOTE | 2020-03-20 22:17 | NUR ---
Pt wanted to use phone at 10pm at night, told pt no she became slightly irritated. Provided her with her night risp. unable to scan as no computer in room/garage doors and no remote computer. Sitter remains in line of site.
--- NOTE | 2020-03-21 00:11 | NUR ---
Sleeping RR equal and unlabored. Sitter in line of site. Will continue to monitor.
--- NOTE | 2020-03-21 03:02 | NUR ---
Sleeping, RR equal and unlabored. SItter in line of site.
--- NOTE | 2020-03-21 04:08 | NUR ---
Sleeping, RR equal and unlabored. Sitter in line of site.
--- NOTE | 2020-03-21 05:41 | NUR ---
Sleeping, RR equal and unlabored. Sitter in line of site.
--- NOTE | 2020-03-21 06:52 | NUR ---
report to shaun sandoval
--- NOTE | 2020-03-21 07:08 | NUR ---
Took report from Lauren Mabry RN, assume care at this time.
[2020-03-21] MEDS ORDERED: CITALOPRAM 20 MG TABLET ONE (07:47)
--- NOTE | 2020-03-21 07:50 | NUR ---
Pharmacy nursing communication from sent for 0900 meds
--- NOTE | 2020-03-21 07:52 | NUR ---
ED DIET TRAY ORDERED
--- NOTE | 2020-03-21 08:00 | NUR ---
ROOM IS SAFE AND SECURE WITH ELIDA SITTER OUTSIDE THE ROOM. PT SLEEPING RR EVEN AND UNLABORED.
--- NOTE | 2020-03-21 08:55 | NUR ---
PT REPORTS ADITORY HALLUCINATIONS STILL AND SIT THAT IT IS GETTING BETTER. NO REQUESTS AT THIS TIME.
[2020-03-21] MEDS: PALIPERIDONE 3 MG TAB.ER.24 PO SCH (09:21)
[2020-03-21] MEDS: CITALOPRAM 10 MG TABLET PO SCH (09:21)
--- NOTE | 2020-03-21 11:45 | NUR ---
DIET TRAY GIVEN
--- NOTE | 2020-03-21 15:10 | NUR ---
THROUGHPUT RN: CALLED [facility], SPOKE WITH FAB WHO TOOK MSG FOR TEAM ASSEMBLER TO CALL ER BACK WITH UPDATE ON PT STATUS/ACCEPTANCE. WILL BE AWAITING RETURN CALL FROM [facility] TEAM ASSEMBLER
--- NOTE | 2020-03-21 15:48 | NUR ---
THROUGHPUT RN: SPOKE WITH [facility] ADAM WALLIS, STATES "PT IS 2ND ON PRIORITY LIST, HOWEVER WE WILL NOT BE ACCEPTING ANY PT'S UNTIL NEXT WEEK." DISCUSSED WITH REFUGIO SIMMONS AND ANDREA EDUARDO, AWARE.
--- NOTE | 2020-03-21 17:22 | NUR ---
PT TAKING A SHOWER PER REQUEST, PT'S ROOM CLEANED, NEW SHEETS PUT ON THE HOSPITAL ROOM IS SAFE AND SECURE.
--- NOTE | 2020-03-21 19:00 | NUR ---
REPORT RECIEVED FROM NADIYA ESTEVES. SPOKE TO PT WITH DRAFTER CIVIL TO EXPLAIN POC AND STATUS OF TRANSFER TO PSYCH UNIT. ALL QUESTIONS ANSWERED, NO NEEDS AT THIS TIME, CALL LIGHT WITHIN REACH
[2020-03-21] MEDS: RISPERIDONE 0.5 MG TABLET PO SCH (20:17)
--- NOTE | 2020-03-21 20:24 | NUR ---
PT MEDICATED PER EMAR AND PROVIDED COFFEE PER REQUEST. IN LINE OF SIGHT OF SITTER
--- NOTE | 2020-03-21 21:37 | NUR ---
PT SLEEPING IN BED, RESP EVEN/UNLABORED, IN LINE OF SIGHT OF SITTER
--- NOTE | 2020-03-21 23:20 | NUR ---
PT PROVIDED SOME SNACKS PER REQUEST, STATES NO OTHER NEEDS AT THIS TIME. IN LINE OF SIGHT OF AMANDATER
--- NOTE | 2020-03-22 01:54 | NUR ---
PT SLEEPING, RESPERATIONS EVEN/UNLABORED, CALL LIGHT WITHIN REACH, IN LINE OF SIGHT OF SITTER
--- NOTE | 2020-03-22 03:43 | NUR ---
PT SLEEPING IN BED, RESP EVEN/UNLABORED, IN LINE OF SIGHT OF SITTER
--- NOTE | 2020-03-22 05:05 | NUR ---
PT SLEEPING IN BED, RESPIRATIONS EVEN/UNLABORED, IN LINE OF SIGHT OF SITTER
--- NOTE | 2020-03-22 06:17 | NUR ---
PT RESTING IN BED, VITALS TAKEN, STATES NO NEEDS AT THIS TIME. IN LINE OF SIGHT OF SITTER
--- NOTE | 2020-03-22 06:54 | NUR ---
bedside report given to shaun juárez
--- NOTE | 2020-03-22 06:54 | NUR ---
REPORT RECEIVED FROM LANA HEARN. PT SLEEPING ON HOSPITAL BED W/ GARAGE DOORS DOWN AND SITTER OUTSIDE FOR SAFETY. RESP EVEN AND UNLABORED, EMMANUEL.
--- NOTE | 2020-03-22 07:07 | NUR ---
MORNING MEDS REQUESTED FROM PHARMACY.
--- NOTE | 2020-03-22 08:19 | NUR ---
SUICIDE RISK REASSESMENT DONE. PT STATES THAT SHE NO LONGER HAS ANY THOUGHTS OF SUICDE BUT SIMPLY FEELS DEPRESSED WHICH IS EXACERBATED BY HER LONG STAY HERE. SHE STATES SHE WANTS TO GO HOME. PT ALSO COMPLAINS OF CONSTIPATION WITH NO BM FOR FOUR DAYS. SHE ALSO WOULD LIKE TO NOT HAVE ANY MORE SANDWICHES AND WANTS TO HAVE MORE VEGETABLES AND SOUPS. WILL ASK FOR PRN MED FOR CONSTIPATION FROM PROVIDER.
--- NOTE | 2020-03-22 08:29 | NUR ---
SAFETY BREAKFAST TRAY DELIVERED TO PT.
[2020-03-22] MEDS ORDERED: DOCUSATE 50 MG/5 ML, 10ML UDC PO ONE (08:30)
[2020-03-22] MEDS ORDERED: DOCUSATE 50 MG/5 ML, 10ML UDC ONE (08:34)
[2020-03-22] MEDS: PALIPERIDONE 3 MG TAB.ER.24 PO SCH (08:39)
[2020-03-22] MEDS: CITALOPRAM 10 MG TABLET PO SCH (08:39)
--- NOTE | 2020-03-22 10:05 | NUR ---
PT RESTING ON HOSPITAL BED W/ GARAGE DOORS DOWN AND SITTER OUTSIDE FOR SAFETY. RESP EVEN AND UNLABORED, EMMANUEL.
--- NOTE | 2020-03-22 11:01 | NUR ---
RECEIVED REPORT FROM TAVO HEARN. ASSUMING CARE AT THIS TIME. PT RESTING ON HOSPITAL BED. PT IN DIRECT SIGHT OF SITTER. ROOM SECURE.
--- NOTE | 2020-03-22 12:00 | NUR ---
ADRIAN MARTINEZ PROVIDED. PSYCH MD PHIPPS PT. PT TO BE DC.
[2020-03-22 13:38] VITALS: BP 101/60
== END 2020-03-22 13:40 | disposition home or self-care (01) ==
LOC: ED 03-06 09:23 → SUATTDRO 03-16 11:38 → ED 03-22 13:40
PROVIDERS: ATTEND Hospitalist
DX: T43.222A Poisoning by selective serotonin reuptake inhibitors, intentional self-harm, initial encounter (principal); F32.1 Major depressive disorder, single episode, moderate; R45.851 Suicidal ideations; N39.0 Urinary tract infection, site not specified; B96.20 Unspecified Escherichia coli [E. coli] as the cause of diseases classified elsewhere; F17.200 Nicotine dependence, unspecified, uncomplicated; Y92.89 Other specified places as the place of occurrence of the external cause
CPT/HCPCS: 36415; 74176; 80053; 80299; 80307; 80320; 80329; 81001; 83690; 85025; 87077; 87086; 87186; 93005; 99285; G0480